=== PATIENT | male | born 1975 | race Caucasian/White ===

== ENCOUNTER 2020-01-21 14:55 | Emergency (ER) | payer BC, SELFPAY ==
[2020-01-21 15:05] VITALS: BP 147/86; PULSE 81; RESP 16; TEMP 37.1; O2SAT 98
--- NOTE | 2020-01-21 15:07 | ED.BACK ---
HPI - Back Pain/Injury General Chief Complaint: Back Pain/Injury Stated Complaint: back pain Time Seen by Provider: 01/21/20 15:07 Source: patient and RN notes reviewed History of Present Illness HPI Narrative: Patient is a 45-year-old male that presents the urgent care with complaints of left low back pain radiating down the left leg. Patient states he has a history of sciatica and messed up back . Patient states that he typically takes a steroid and uses a muscle relaxer for this type of pain. Patient states that it started today and he is done some stretches this morning, without much relief. Patient is also use heat. States he has not taken anything for the pain because he is already on diclofenac for his knee. Denies any new trauma, known injury. States that pain exacerbates with movement. No other acute complaints. No acute distress noted. Patient read the plan of care. Related Data Home Medications Medication Instructions Recorded Confirmed amlodipine 5 mg PO DAILY 01/21/20 01/21/20 diclofenac sodium 75 mg PO DAILY 01/21/20 01/21/20 vilazodone [Viibryd] 20 mg PO DAILY 01/21/20 01/21/20 Allergies Allergy/AdvReac Type Severity Reaction Status Date / Time aspirin Allergy Unknown Rash Verified 01/21/20 15:03 Penicillins Allergy Unknown Swelling Verified 01/21/20 15:03 Review of Systems Review of Systems: Narrative: CONSTITUTIONAL: Denies fever, chills, or sweats. EYES: Denies visual changes, redness, or discharge. ENT: Denies rhinorrhea, congestion, sore throat, or otalgia. CARDIOVASCULAR: Denies chest pain, palpitations, or edema. RESPIRATORY: Denies cough or dyspnea. GASTROINTESTINAL: Denies abdominal pain, nausea, vomiting, or diarrhea. GENITOURINARY: Denies dysuria or hematuria. SKIN: Denies rash or itching. MUSCULOSKELETAL: Reports of left low back pain radiating down the left leg NEUROLOGIC: Denies headache, numbness, or weakness. All other systems reviewed are negative, except as documented in HPI. [facility] Family History Family History (Updated 10/28/17 @ 09:16 by DOCTOR UNKNOWN) Other Family history of lung cancer Social History Social History Smoking status: Former smoker Second hand tobacco smoke exposure: No Smoking end date: 11/29/04 Alcohol intake: current Comments At the time of my signature, I reviewed and agree with the nursing past medical, surgical, social, and family history. There is no relevant family history pertinent to the patient complaint. Exam Narrative: Exam Narrative: GENERAL: This is a well-nourished, well-developed patient, in no apparent distress. HEAD: normocephalic, atraumatic. EYES: PERRL. Sclera clear/white. Vision is grossly intact. EARS: External ears normal NOSE: External nose normal with no obvious nasal discharge THROAT: Mucous membranes moist NECK: Neck supple CARDIOVASCULAR: Regular rate and rhythm without murmurs, gallops, or rubs. RESPIRATORY: Clear to auscultation. Breath sounds equal bilaterally. No wheezes, rales, or rhonchi. SKIN: warm, intact with no suspicious lesions or rash, good texture and turgor. NEURO: awake, alert, and oriented to person, place and time. There were no obvious focal neurologic abnormalities. EXTREMITIES: No clubbing, cyanosis, or edema. No joint tenderness, effusion, or edema noted. No calf tenderness. Negative Homans sign bilaterally. BACK: No lumbar or thoracic tenderness. Positive left SLE. Course Vital Signs Vital signs: Vital Signs Temperature 98.8 F 01/21/20 15:05 Pulse Rate 81 01/21/20 15:05 Respiratory Rate 16 01/21/20 15:05 Blood Pressure 147/86 H 01/21/20 15:05 Pulse Oximetry 98 01/21/20 15:05 Temperature 98.8 F 01/21/20 15:05 Pulse Rate 81 01/21/20 15:05 Respiratory Rate 16 01/21/20 15:05 Blood Pressure 147/86 H 01/21/20 15:05 Pulse Oximetry 98 01/21/20 15:05 Reviewed?patient is informed that they may have pre-hypertension or hypertension based on a blood pres
== END 2020-01-21 15:26 | disposition home or self-care (01) ==
PROVIDERS: Emergency Provider Nurse Practitioner Family; PCP Family Medicine
DX: M54.32 Sciatica, left side (principal); Z87.891 Personal history of nicotine dependence; I10 Essential (primary) hypertension; F41.9 Anxiety disorder, unspecified
CPT/HCPCS: 99213; G0463

== ENCOUNTER 2021-06-06 09:29 | Outpatient (CLI) | payer BC, SELFPAY ==
--- NOTE | 2021-06-06 09:30 | ECG_ITS ---
Measurements Intervals [place] Rate: 74 P: 53 KS: 141 QRS: -6 QRSD: 132 T: -23 QT: 384 QTc: 427 Interpretive Statements SINUS RHYTHM INTRAVENTRICULAR CONDUCTION DELAY VOLTAGE CRITERIA FOR LVH MINIMAL Q WAVES- HIGH LATERAL LEADS BORDERLINE T WAVE ABNORMALITY- INFERIOR LEADS BASELINE ARTIFACT- I, III, AVR, AVL BORDERLINE ECG Electronically Signed On 06-06-2021 10:40:02 CDT by Chintan Dugan D.O.
== END 2021-06-06 09:30 | disposition home or self-care (01) ==
LOC: ANHSURGERY 09:30
PROVIDERS: PCP Family Medicine; Visit Provider Surgery
DX: Z01.818 Encounter for other preprocedural examination (principal); I10 Essential (primary) hypertension; K40.90 Unilateral inguinal hernia, without obstruction or gangrene, not specified as recurrent
CPT/HCPCS: 36415; 86850; 86900; 86901; 93005

== ENCOUNTER 2021-06-09 00:24 | Day surgery (SDC) | payer BC, SELFPAY ==
[2021-06-09] VITALS (7 sets, daily range): BP systolic 146–168; BP diastolic 80–95; PULSE 76–96; RESP 14–16; TEMP 36.1–36.8; O2SAT 95–100
[2021-06-09] MEDS: ACETAMINOPHEN 500 MG TABLET 1000 MG PO (06:37)
[2021-06-09] MEDS: LACTATED RINGERS 1,000 ML 30 ML IV CONT ×2 (06:46→08:56)
--- NOTE | 2021-06-09 06:52 | WPDANESEPPF ---
Anes - Initial Pre Proc Eval Procedure: Operation Date: 06/09/21 07:30 Proposed Procedures p Robotic Assisted Laparoscopic Right Inguinal Hernia Repair With Mesh - Mishel Blackwood MD Date/Time: 06/09/21 06:52 Surgeon: Mishel Blackwood MD Pre Op Diagnosis: right inguinal hernia Patient Data Age: 46 Gender: M Height: 1.75 m Weight: 96 kg Last Vital Signs Temp 36.8 C 06/09/21 06:30 Pulse 85 06/09/21 06:30 Resp 16 06/09/21 06:30 BP 155/82 H 06/09/21 06:30 Pulse Ox 98 06/09/21 06:30 Allergies Allergy/AdvReac Type Severity Reaction Status Date / Time aspirin Allergy Unknown Swelling Verified 06/09/21 06:35 Penicillins Allergy Unknown Swelling Verified 06/09/21 06:35 Home Medications Medication Instructions Recorded Confirmed Type amlodipine 5 mg tablet See Rx Instructions .ROUTE 03/26/20 06/09/21 Rx .COMPLEX #90 tablet buspirone 7.5 mg tablet 7.5 mg PO TID 03/03/21 06/09/21 History sertraline 50 mg tablet 50 mg PO DAILY 03/03/21 06/09/21 History Patient hx anesthesia problems: none Family hx anesthesia problems: none PMFSH Past Medical History Medical History (Updated 06/09/21 @ 06:52 by Velasquez Dumont MD) Anxiety Depression Dyslipidemia Essential (primary) hypertension Hepatic steatosis Panic attacks Family History Family History Father Family history of lung cancer Other Family history of lung cancer Malignant neoplasm of prostate Breast cancer Stomach cancer Social History Social History Smoking packs per day: 1.5 Smoking cigarettes per day: 30.0 Years smoked: 10 Smoking pack-years: 15.00 Smoking status: Former smoker Tobacco type: cigarettes Second hand tobacco smoke exposure: No Smoking end date: 11/29/04 Alcohol intake: current Substance use: never Substance use type: does not use and marijuana Other substance usage details: SMOKE, EDIIBLE Last use: 04/2021 Living arrangements: alone Gender identity (if verbalized by the patient): Male Sexual Orientation (if Verbalized by the Patient): Straight or Heterosexual Spiritual care concerns: No Anes - Eval Final PreProcedure Day of Procedure 06/09/21 06:52 Patient weight: obese Heart: regular rate and rhythm Lungs: clear to auscultation Airway: Mallampati scale class II Neurological: alert and oriented Last oral intake: >/= 8 hours ASA classification: III Emergent: no Anesthetic plan: proceed Anesthesia type and monitoring: general ETT and standard monitoring Informed Consent: The patient's anesthetic plan and its attendant risks and benefits were discussed with the patient/family/POA. Questions were solicited and answers provided to the satisfaction of the patient/family/POA.
[2021-06-09] MEDS: KETOROLAC 15 MG/ML VIAL (*BKC) IV PUSH (07:21)
--- NOTE | 2021-06-09 07:21 | WPDHPUPDATE1 ---
History and Physical Update Update Date/Time: 06/09/21 07:21 History and Physical has been reviewed, including an updated exam of the patient. There are NO changes in the patient's condition. Risks, benefits, and alternatives have been discussed and questions answered. Patient agrees to proceed with procedure.
--- NOTE | 2021-06-09 07:22 | PM.IMHP ---
H&P: HPI History of Present Illness Date/Time: 06/09/21 07:22 Pt presented to office in February c/o 2 yr h/o R groin bulging, discomfort. Pt reports area seems to be slowly becoming larger and more symptomatic. Pt denies any s/s obstruction, incarceration. Chief Complaint: right inguinal hernia Review of Systems Review of Systems: All systems reviewed & are unremarkable except as noted in HPI and below PMFSH Past Medical History Medical History Anxiety Depression Dyslipidemia Essential (primary) hypertension Hepatic steatosis Panic attacks Family History Family History Father Family history of lung cancer Other Family history of lung cancer Malignant neoplasm of prostate Breast cancer Stomach cancer Social History Social History Smoking packs per day: 1.5 Smoking cigarettes per day: 30.0 Years smoked: 10 Smoking pack-years: 15.00 Smoking status: Former smoker Tobacco type: cigarettes Second hand tobacco smoke exposure: No Smoking end date: 11/29/04 Alcohol intake: current Substance use: never Substance use type: does not use and marijuana Other substance usage details: SMOKE, EDIIBLE Last use: 04/2021 Living arrangements: alone Gender identity (if verbalized by the patient): Male Sexual Orientation (if Verbalized by the Patient): Straight or Heterosexual Spiritual care concerns: No Meds Home Medications and Allergies Home Medications Medication Instructions Recorded Confirmed Type amlodipine 5 mg tablet See Rx Instructions .ROUTE 03/26/20 06/09/21 Rx .COMPLEX #90 tablet buspirone 7.5 mg tablet 7.5 mg PO TID 03/03/21 06/09/21 History sertraline 50 mg tablet 50 mg PO DAILY 03/03/21 06/09/21 History Allergies Allergy/AdvReac Type Severity Reaction Status Date / Time aspirin Allergy Unknown Swelling Verified 06/09/21 06:35 Penicillins Allergy Unknown Swelling Verified 06/09/21 06:35 Vital Signs Vital Signs - 24 hr 06/09/21 06:30 Temperature 36.8 C Pulse Rate 85 Respiratory Rate 16 Blood Pressure 155/82 H Pulse Oximetry 98 Exam Const: General: cooperative, comfortable and no acute distress Nutritional Appearance: overweight Orientation/consciousness: patient oriented x3 Limitations: no limitations Resp: Effort & Inspection: normal respiratory effort Auscultation: clear to auscultation bilaterally Cardio: Rate: regular rate Rhythm: regular rhythm GI: Inspection: normal to inspection GI Palp: Yes Soft to palpation, No Tenderness to palpation present (GI) and No Guarding due to palpation present (GI) Other: RIH easily reducible Skin: General skin exam: normal color and no rashes or lesions noted Assessment and Plan Assessment and plan (1) Right inguinal hernia: Code(s): K40.90 - Unilateral inguinal hernia, without obstruction or gangrene, not specified as recurrent Status: Acute Assessment and Plan: plan for repair with mesh in OR
[2021-06-09] MEDS: ceFAZolin 2 GM/D5W 50 ML 2 GM/50 ML BAG IVPB (07:31)
[2021-06-09] MEDS: BUPIVACAINE/EPINEPHRINE 0.5% 10 ML VIAL 30 ML INFILTRATE (08:04)
--- NOTE | 2021-06-09 08:45 | P.OP_ITS ---
Procedure Note - Detailed Date of Procedure 06/09/21 Pre-op Diagnosis right inguinal hernia Post-op Diagnosis same Procedure Performed Robotic assisted repair direct right inguinal hernia with mesh Surgeon Mishel Blackwood MD Anesthesia general Indications 46 y/o M c progressively enlarging MNH over last 2 yrs Findings right direct inguinal hernia Description of Procedure Patient was brought into the operating room and placed in the supine position. After adequate induction of general anesthesia, the patient was prepped and draped in normal sterile fashion. A time-out was then done to verify the patient's identity, as well as the procedure being performed. Began by making a 8 mm incision in the supraumbilical region, a Veress needle was then placed into the peritoneal cavity. CO2 gas was then insufflated and after adequate pneumoperitoneum was achieved, the Veress needle was removed. I then placed an 8 mm trocar through this incision. I then placed the endoscope through this trocar site and under direct visualization placed 2 further 8 mm ports in the right and left mid abdomen. The [employer] robot was then docked to the 3 trocar sites. I then scrubbed out and went to the robotic console. Upon examining the pelvis, it was noted that the patient had a direct right inguinal hernia defect. The left side was examined and no hernia defect was noted. I began by making a preperitoneal flap approximately 6 cm superior to the defect. This flap was carried medially past the umbilical ligaments in laterally to the transversalis. It then began dissection of my medial compartment taking this down to the pubic tubercle. I also reduced the direct hernia sac at this point. I then began the lateral dissection taking this down to the transversalis fascia. Once these compartments were achieved, I began dissection around the cord structures. No indirect hernia was noted in this area. Once this was adequately done, I went ahead and placed a 15 x 10 piece of Pro [employer] mesh into the abdominal cavity. The mesh was carefully positioned, centering the center of the mesh over the direct defect. Once this was done, was very satisfied with our repair. I then closed the peritoneal flap with a running 2.0 V Lock suture. The abdomen was then desufflated, and all ports were removed. All incisions were then closed with the 4.0 monocryl suture. Dermabond was placed on each wound. The patient tolerated the procedure well, was extubated in the operating room postoperatively, and will now be transferred to the recovery room in stable condition. Implants 15 x 10 Pro Unit Leader mesh Estimated Blood Loss 10 Drains No Packing No Pathology none sent Complications No immediate complications Condition stable Disposition PACU
[2021-06-09] MEDS: oxyCODONE HCL (*CRX) 5 MG TAB IR PO (09:55)
== END 2021-06-09 10:25 | disposition home or self-care (01) ==
PROVIDERS: PCP Family Medicine; Visit Provider Surgery
PROC: 8E0Y4CZ Robotic Assisted Procedure of Lower Extremity, Percutaneous Endoscopic Approach (ICD-10-PCS; CPT 49650; principal; 2021-06-09 07:30)
DX: K40.90 Unilateral inguinal hernia, without obstruction or gangrene, not specified as recurrent (principal); F41.0 Panic disorder [episodic paroxysmal anxiety]; F41.8 Other specified anxiety disorders; K76.0 Fatty (change of) liver, not elsewhere classified; Z87.891 Personal history of nicotine dependence; F12.90 Cannabis use, unspecified, uncomplicated; Z79.82 Long term (current) use of aspirin; E66.9 Obesity, unspecified; Z68.31 Body mass index [BMI] 31.0-31.9, adult
CPT/HCPCS: 49650; S2900; A9270; C1781; J0330; J0690; J1100; J1170; J1885; J2250; J2405; J2704; J3010; J7030; J7120